=== PATIENT | male | born 1940 | race Caucasian/White ===

== ENCOUNTER → 2016-05-17 | Outpatient (CLI) | payer OTHER, BC ==
--- NOTE | 2016-05-17 14:06 | US ---
Limited chest wall ultrasound 1309 hours. History: Right lower anterior chest wall mass. Findings: Ultrasound over area of palpable nodule demonstrates prominence of the underlying cartilage from the ribs near the costochondral junction. At the level just below the areola on the right there is mild superficial bulging of the cartilaginous portion that is asymmetric to the left side. No sig nificant underlying mass is seen. There is no evidence of lipoma. Impression: 1. Area of palpable concern along the right anterior/inferior chest wall corresponds to underlying mi ld asymmetric prominence of the cartilaginous portion of the ribs. The results of this study were reviewed with the patient and his . Clinical followup recommended.
== END ==
LOC: BMCIMAGING 12:13
PROVIDERS: ATTEND Internal Medicine
DX: R22.2 Localized swelling, mass and lump, trunk (principal)

== ENCOUNTER 2016-11-28 12:58 | Emergency (ER) | payer OTHER, BC ==
[2016-11-28] MEDS ORDERED: NS 1,000 ML IV ONE (13:14)
--- NOTE | 2016-11-28 13:15 | EDPHY ---
H & P Stated Complaint: syncope in shower this AM HPI/ROS: HPI CHIEF COMPLAINT: Syncope in shower HISTORY OF PRESENT ILLNESS: This patient is 76-year-old male, significant past medical history for dementia, hypertension, hyperlipidemia, he presents emergency room by private vehicle after he had a syncopal episode witnessed by his while getting out of the shower. The patient had not had anything to eat. reports that he was getting a shower had a syncopal episode with positive LOC. Head strike against the shower wall but no significant bleeding or injury. Patient does report no preceding symptoms. He denies lightheadedness , dizziness, chest pain or shortness of breath. Denies tunnel vision. Next thing he remembers is that he woke up on the ground. His to take his vitals are noted that his blood pressure was then 90 systolic multiple times. It is since comma to the 110s. Upon arrival here in emergency room the patient has a normal neurological exam he has no complaints he does tell me feels tired but denies any significant focal weakness. He denies chest pain or shortness of breath. He does additionally tells me that this happened 1 other time on charge and he was dehydrated. Past Medical History: Hypertension, hyperlipidemia, dementia Past Surgical History: No recent surgery Social History: Denies daily use drugs alcohol tobacco products. at bedside. Family History: Noncontributory. ROS REVIEW OF SYSTEMS: A comprehensive 10 point review of systems is otherwise negative aside from elements mentioned in the history of present illness. Exam Constitutional appears well nontoxic, triage nursing summary reviewed, vital signs reviewed, awake/alert. Eyes normal conjunctivae and sclera, EOMI, PERRLA. HENT normal inspection, atraumatic, moist mucus membranes, no epistaxis, neck supple/ no meningismus, no raccoon eyes. Respiratory clear to auscultation bilaterally, normal breath sounds, no respiratory distress, no wheezing. Cardiovascular rate normal, regular rhythm, no murmur, no edema, distal pulses normal. Gastrointestinal soft, non-tender, no rebound, no guarding, normal bowel sounds, no distension, no pulsatile mass. Genitourinary no CVA tenderness. Musculoskeletal no midline vertebral tenderness, full range of motion, no calf swelling, no tenderness of extremities, no meningismus, good pulses, neurovascularly intact. Skin pink, warm, & dry, no rash, skin atraumatic. Neurologic normal neurological exam no focal neuro deficits, awake, alert and oriented x 3, AAOx3, moves all 4 extremities equally, motor intact, sensory intact, CN II-XII intact, normal cerebellar, normal vision, normal speech. Psychiatric normal mood/affect. Heme/Lymph/Immune no lymphadenopathy. Differential Diagnosis: Includes but is not limited to in a particular order, dehydration, electrolyte disturbance, cardiac arrhythmia, stroke, vasovagal syncope, orthostatic syncope Medical Decision Making: Plan for this patient 1 L normal saline bolus, full cardiac cath tech, EKG, check electrolytes and blood work, check troponin. Re-evaluation: EKG interpretation by me on record in [employer] system. Impression time of EKG 1331: Sinus rhythm rate of 55, left axis deviation. NE interval: 216. No acute ischemic changes. Unremarkable EKG. CT scan of the head without IV contrast. The results of the study are negative for acute abnormality. The study was read by Dr. Khalil I viewed the images myself on the PACS system. 1509: Re-evaluation at this time this patient is resting comfortably no acute distress. He ambulated well to the bathroom. He has been placed on cardiac cath tech the entire time with no signs of cardiac arrhythmia. His troponin is negative EKG is nonischemic. There is no cardiac arrhythmia. He ambulated well feels fine denies headache chest pain or shortness of breath is requesting discharge home. Most likely had syncopal episode due to dehydration not eating a meal or drinking much fluids this morning hot shower. Does understand return emergency room if develops chest pain, shortness of breath, or has another syncopal episode. Take it easy today. Drink lots of fluids stay well-hydrated return if any questions or concerns. updated at bedside he and his understand. Source: Patient - Personal History Current Tetanus/Diphtheria Vaccine: Yes Current Tetanus Diphtheria and Acellular Pertussis (TDAP): Yes Tetanus Vaccine Date: 12/23 - Medical/Surgical History Hx Asthma: No Hx Chronic Respiratory Disease: No Hx Diabetes: No Hx Cardiac Disease: Yes Hx Renal Disease: No Hx Cirrhosis: No Hx Alcoholism: No Hx HIV/AIDS: No Hx Splenectomy or Spleen Trauma: No Other PMH: medical SVT with abaltion, depression hypothryroid;S/P APPY;S/P T&A - Social History Smoking Status: Never smoked Constitutional: Initial Vital Signs Temperature (C) 36.3 C 11/28/16 13:04 Heart Rate 58 L 11/28/16 13:04 Respiratory Rate 16 11/28/16 13:04 Blood Pressure 129/72 H 11/28/16 13:04 O2 Sat (%) 97 11/28/16 13:04 O2 Delivery Mode Room Air Allergies/Adverse Reactions: memantine HCl [From Namenda] Allergy (Verified 09/12/15 11:21) Home Medications: Medication Instructions Recorded Simvastatin [Zocor 10 mg] 5 mg PO HS 03/06/12 Levothyroxine [Synthroid 100 mcg 100 mcg PO DAILY06 #0 tab 03/07/12 (*)] Aspirin [Aspirin 325 mg (*)] 325 mg PO DAILY 10/06/13 Clindamycin 1% [Cleocin 1% Lotion] 1 osvaldo TP DAILY #0 10/06/13 Cyanocobalamin [Vitamin B12 (*)] 1,000 mcg PO DAILY@18 10/06/13 Multivitamins [Multivitamin (*)] 1 each PO DAILY 10/06/13 Acetaminophen [Tylenol Arthritis] 650 mg PO BID 09/12/15 Bupropion HCl [Bupropion Xl] 150 mg PO DAILY 09/12/15 Calcium Carbonate [Oyster Shell 1,000 mg PO DAILY 09/12/15 Calcium 500 mg (*)] Cholecalciferol (Vitamin D3) 2,000 unit PO DAILY 09/12/15 [Vitamin D3] Donepezil HCl [Aricept] 10 mg PO DAILY 09/12/15 Fish Oil/Dha/Epa [Fish Oil 1,200 1 each PO DAILY@18 09/12/15 mg Fish Oil] Fluocinonide 1 osvaldo TP DAILY 09/12/15 Polyethylene Glycol 3350 [Miralax 17 gm PO DAILY 09/12/15 17 gm (*)] Medical Decision Making - Diagnostics Imaging Results: Imaging Impressions Chest X-Ray 11/28/16 13:15 Impression: No evidence for acute cardiopulmonary abnormality. Stable chronic findings as above. Head CT 11/28/16 13:22 Impression: Minimal periventricular white matter change that can be seen with aging or small vessel ischemic disease. No evidence for acute intracranial abnormality. Results called and discussed with Dr. Tylor Ledbetter, on November 28, 2016 at 1436 hours. - Data Points Laboratory Results: Laboratory Results 11/28/16 13:20 11/28/16 13:20 11/28/16 11/28/16 11/28/16 13:20 13:20 13:20 WBC 8.67 10^3/uL 10^3/uL (3.80-9.50) RBC 4.99 10^6/uL 10^6/uL (4.40-6.38) Hgb 15.1 g/dL g/dL (13.7-17.5) Hct 44.6 % % (40.0-51.0) MCV 89.4 fL fL (81.5-99.8) MCH 30.3 pg pg (27.9-34.1) MCHC 33.9 g/dL g/dL (32.4-36.7) RDW 12.3 % % (11.5-15.2) Plt Count 179 10^3/uL 10^3/uL (150-400) MPV 9.4 fL fL (8.7-11.7) Neut % (Auto) 89.0 % H % (39.3-74.2) Lymph % (Auto) 3.6 % L % (15.0-45.0) [place] % (Auto) 5.2 % % (4.5-13.0) Eos % (Auto) 1.2 % % (0.6-7.6) Baso % (Auto) 0.5 % % (0.3-1.7) Nucleat RBC Rel Count 0.0 % % (0.0-0.2) Absolute Neuts (auto) 7.73 10^3/uL H 10^3/uL (1.70-6.50) Absolute Lymphs (auto) 0.31 10^3/uL L 10^3/uL (1.00-3.00) Absolute Monos (auto) 0.45 10^3/uL 10^3/uL (0.30-0.80) Absolute Eos (auto) 0.10 10^3/uL 10^3/uL (0.03-0.40) Absolute Basos (auto) 0.04 10^3/uL 10^3/uL (0.02-0.10) Absolute Nucleated RBC 0.00 10^3/uL 10^3/uL (0-0.01) Immature Gran % 0.5 % % (0.0-1.1) Immature Gran # 0.04 10^3/uL 10^3/uL (0.00-0.10) PT 13.9 SEC SEC (12.0-15.0) INR 1.08 (0.83-1.16) APTT 27.1 SEC SEC (23.0-38.0) Sodium 143 mEq/L mEq/L (134-144) Potassium 3.8 mEq/L mEq/L (3.5-5.2) Chloride 105 mEq/L mEq/L (97-110) Carbon Dioxide 24 mEq/l mEq/l (22-31) Anion Gap 14 mEq/L mEq/L (8-16) BUN 19 mg/dL mg/dL (7-23) Creatinine 1.0 mg/dL mg/dL (0.7-1.3) Estimated GFR > 60 Glucose 117 mg/dL H mg/dL (70-100) Calcium 9.0 mg/dL mg/dL (8.5-10.4) Magnesium 2.2 mg/dL mg/dL (1.6-2.3) Total Bilirubin 0.9 mg/dL mg/dL (0.1-1.4) Conjugated Bilirubin 0.3 mg/dL mg/dL (0.0-0.5) Unconjugated Bilirubin 0.6 mg/dL mg/dL (0.0-1.1) AST 30 IU/L IU/L (17-59) ALT 27 IU/L IU/L (21-72) Alkaline Phosphatase 70 IU/L IU/L (38-126) Creatine Kinase 82 IU/L IU/L (0-224) CK-MB (CK-2) Fraction 1.23 ng/mL ng/mL (0-3.19) Troponin I < 0.012 ng/mL ng/mL (0-0.034) NT-Pro-B Natriuret Pep 185 pg/mL pg/mL (0-450) Total Protein 7.4 g/dL g/dL (6.3-8.2) Albumin 4.4 g/dL g/dL (3.5-5.0) Medications Given: Discontinued Medications Sodium Chloride (Ns) 1,000 mls @ 0 mls/hr IV ONCE ONE; Wide Open PRN Reason: Protocol Stop: 11/28/16 13:15 Last Admin: 11/28/16 13:27 Dose: 1,000 mls Departure - Departure Disposition: Home, Routine, Self-Care Clinical Impression: Syncope Qualifiers: Syncope type: unspecified Qualified Code(s): R55 - Syncope and collapse Condition: Good Instructions: Syncope (ED) Additional Instructions: 1.Drink lots of fluids stay well-hydrated. 2. Return to the emergency room if your develop worsening symptoms, this includes passing out, chest pain, shortness of breath. Referrals: Dyan Greer MD [Primary Care Provider] - As per Instructions
[2016-11-28 13:30] LABS: % IMMATURE GRANULYOCYTES 0.5 % (0.0-1.1); ABSOLUTE IMMATURE GRANULOCYTES 0.04 10^3/uL (0.00-0.10); ADD DIFF? NO; ADD MORPH? NO; ADD SCAN? NO; ATYPICAL LYMPHOCYTE FLAG 0 (0-99); FRAGMENT RBC FLAG 0 (0-99); HEMATOCRIT 44.6 % (40.0-51.0); HEMOGLOBIN 15.1 g/dL (13.7-17.5); LEFT SHIFT FLG 0 (0-99); LIPEMIA HEMOLYSIS FLAG 90 (0-99); MEAN CELL HEMOGLOBIN 30.3 pg (27.9-34.1); MEAN CELL HEMOGLOBIN CONCENTR. 33.9 g/dL (32.4-36.7); MEAN CELL VOLUME 89.4 fL (81.5-99.8); MEAN PLATELET VOLUME 9.4 fL (8.7-11.7); PLATELET CLUMPS FLAG 40 (0-99); PLATELET COUNT 179 10^3/uL (150-400); RED BLOOD CELL COUNT 4.99 10^6/uL (4.40-6.38); RED CELL DISTRIBUTION WIDTH 12.3 % (11.5-15.2)
--- NOTE | 2016-11-28 13:34 | CPEKG ---
Heart Rate: 55 RR Interval: 1091 P-R Interval: 216 QRSD Interval: 96 QT Interval: 440 QTC Interval: 421 P [place]: 49 QRS [place]: -31 T Wave [place]: 17 EKG Severity - OTHERWISE NORMAL ECG - EKG Impression: SINUS RHYTHM EKG Impression: LEFT AXIS DEVIATION Electronically Signed By: Carlos Graves 29-Nov-2016 07:55:46
[2016-11-28 13:41] LABS: ALANINE AMINOTRANSFERASE 27 IU/L (21-72); ALBUMIN 4.4 g/dL (3.5-5.0); ALKALINE PHOSPHATASE 70 IU/L (38-126); ANION GAP 14 mEq/L (8-16); APTT 27.1 SEC (23.0-38.0); ASPARTATE AMINOTRANSFERASE 30 IU/L (17-59); BILIRUBIN,TOTAL 0.9 mg/dL (0.1-1.4); BILIRUBIN-CONJUGATED 0.3 mg/dL (0.0-0.5); BILIRUBIN-UNCONJUGATED 0.6 mg/dL (0.0-1.1); CARBON DIOXIDE 24 mEq/l (22-31); CHLORIDE 105 mEq/L (97-110); GLOMERULAR FILTRATION RATE > 60; GLUCOSE 117 mg/dL (70-100); INR 1.08 (0.83-1.16); MAGNESIUM 2.2 mg/dL (1.6-2.3); POTASSIUM 3.8 mEq/L (3.5-5.2); PROTIME(PATIENT) 13.9 SEC (12.0-15.0); SODIUM 143 mEq/L (134-144); TOTAL PROTEIN 7.4 g/dL (6.3-8.2)
[2016-11-28 13:53] LABS: CREATINE KINASE-MB FRACTION 1.23 ng/mL (0-3.19); TROPONIN I < 0.012 ng/mL (0-0.034)
[2016-11-28 15:13] VITALS: BP 109/72; PULSE 58; RESP 19; TEMP 97.9; O2SAT 94
== END 2016-11-28 15:32 | disposition home or self-care (01) ==
DX: R55 Syncope and collapse (principal); I10 Essential (primary) hypertension; Z79.82 Long term (current) use of aspirin

== ENCOUNTER 2016-12-27 13:25 | Emergency (ER) | payer OTHER, BC ==
[2016-12-27 13:30] VITALS: RESP 16
--- NOTE | 2016-12-27 13:39 | CPEKG ---
Heart Rate: 71 RR Interval: 845 P-R Interval: 208 QRSD Interval: 86 QT Interval: 392 QTC Interval: 426 P [place]: 28 QRS [place]: -64 T Wave [place]: 10 EKG Severity - ABNORMAL ECG - EKG Impression: SINUS RHYTHM EKG Impression: LEFT ANTERIOR FASCICULAR BLOCK Electronically Signed By: Gabriele Quick 27-Dec-2016 14:42:53
--- NOTE | 2016-12-27 13:46 | EDPHY ---
H & P Stated Complaint: Increasing number of near syncopal episodes Time Seen by Provider: 12/27/16 13:43 HPI/ROS: CHIEF COMPLAINT: Presyncope HISTORY OF PRESENT ILLNESS: The patient has a history of SVT status post ablation 12 years ago. He presents to the emergency department after an episode of presyncope earlier today. The patient reportedly has been battling symptoms of presyncope over the past several months. He is scheduled to get a Holter monitor placed this week. The patient denies history of melena, fever, cough, congestion or acute pain. The patient does report global weakness. The patient denies asymmetric calf pain or swelling. The patient denies any history of coronary artery disease. 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 REVIEW OF SYSTEMS: A comprehensive 10 point review of systems is otherwise negative aside from elements mentioned in the history of present illness. Source: Patient Exam Limitations: No limitations - Personal History Tetanus Vaccine Date: 12/23 - Medical/Surgical History Hx Asthma: No Hx Chronic Respiratory Disease: No Hx Diabetes: No Hx Cardiac Disease: Yes Hx Renal Disease: No Hx Cirrhosis: No Hx Alcoholism: No Hx HIV/AIDS: No Hx Splenectomy or Spleen Trauma: No Other PMH: medical SVT with abaltion, depression hypothryroid;S/P APPY;S/P T&A - Social History Smoking Status: Never smoked - Physical Exam Exam: General Appearance: Alert, no distress Eyes: Pupils equal and round no pallor or injection ENT, Mouth: Mucous membranes moist Respiratory: There are no retractions, lungs are clear to auscultation Cardiovascular: Regular rate and rhythm Gastrointestinal: Abdomen is soft and nontender, no masses, bowel sounds normal Neurological: A&O, normal motor function, normal sensory exam, normal cranial nerves Skin: Warm and dry, no rashes Musculoskeletal: Neck is supple nontender Extremities: symmetrical, full range of motion Psychiatric: Patient is oriented X 3, there is no agitation Constitutional: Initial Vital Signs Temperature (C) 36.4 C 12/27/16 13:27 Heart Rate 72 12/27/16 13:27 Respiratory Rate 16 12/27/16 13:27 Blood Pressure 131/74 H 12/27/16 13:27 O2 Sat (%) 93 12/27/16 13:27 O2 Delivery Mode Room Air Allergies/Adverse Reactions: memantine HCl [From Namenda] Allergy (Intermediate, Verified 12/27/16 13:30) nausea,lightheaded,disorientation Home Medications: Medication Instructions Recorded RX: Simvastatin [Zocor 10 mg] 5 mg PO HS 03/06/12 RX: Levothyroxine [Synthroid 100 100 mcg PO DAILY06 #0 tab 03/07/12 mcg (*)] RX: Bupropion HCl [Bupropion Xl] 150 mg PO DAILY 09/12/15 RX: Donepezil HCl [Aricept] 10 mg PO DAILY 09/12/15 hydrOXYzine HCL [hydrOXYzine HCL 25 mg PO 12/27/16 (RX)] Medical Decision Making - Diagnostics EKG Interpretation: EKG: Complete interpretation has been separately recorded in the [employer] archive. Summary impression: Sinus rhythm, left anterior fascicular block ED Course/Re-evaluation: The patient presents to the ED with intermittent symptoms of presyncope. The patient does have a history of SVT but does not endorse symptoms of tachycardia. The patient has no fever, urinary symptoms, acute painful complaints or abnormalities noted on his neurologic exam. Patient was placed on a wire twister. The patient had an IV established. The patient received a L of normal saline. The patient was monitored in the emergency department with 3 hours without evidence of arrhythmia or recurrent symptoms of presyncope. The patient's electrolyte testing is within normal limits. His vital signs remained stable without evidence of hypotension or tachycardia. The patient remained neurologically intact without evidence of a focal neurologic deficit. The patient presents to the ED with a recurrent episode of presyncope. 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 The patient will be discharged home with instructions to return to the ED for chest pain, shortness of breath, difficulty breathing, fever, pain or other concerns. Differential Diagnosis: Differential diagnosis considered includes arrhythmia, dehydration, vasovagal episode, metabolic abnormality - Data Points Laboratory Results: Laboratory Results 12/27/16 13:46 12/27/16 13:46 12/27/16 12/27/16 13:46 13:46 WBC 8.27 10^3/uL 10^3/uL (3.80-9.50) RBC 5.28 10^6/uL 10^6/uL (4.40-6.38) Hgb 16.0 g/dL g/dL (13.7-17.5) Hct 46.6 % % (40.0-51.0) MCV 88.3 fL fL (81.5-99.8) MCH 30.3 pg pg (27.9-34.1) MCHC 34.3 g/dL g/dL (32.4-36.7) RDW 12.6 % % (11.5-15.2) Plt Count 205 10^3/uL 10^3/uL (150-400) MPV 9.5 fL fL (8.7-11.7) Neut % (Auto) 83.2 % H % (39.3-74.2) Lymph % (Auto) 7.0 % L % (15.0-45.0) [place] % (Auto) 6.5 % % (4.5-13.0) Eos % (Auto) 2.5 % % (0.6-7.6) Baso % (Auto) 0.6 % % (0.3-1.7) Nucleat RBC Rel Count 0.0 % % (0.0-0.2) Absolute Neuts (auto) 6.87 10^3/uL H 10^3/uL (1.70-6.50) Absolute Lymphs (auto) 0.58 10^3/uL L 10^3/uL (1.00-3.00) Absolute Monos (auto) 0.54 10^3/uL 10^3/uL (0.30-0.80) Absolute Eos (auto) 0.21 10^3/uL 10^3/uL (0.03-0.40) Absolute Basos (auto) 0.05 10^3/uL 10^3/uL (0.02-0.10) Absolute Nucleated RBC 0.00 10^3/uL 10^3/uL (0-0.01) Immature Gran % 0.2 % % (0.0-1.1) Immature Gran # 0.02 10^3/uL 10^3/uL (0.00-0.10) Sodium 137 mEq/L mEq/L (134-144) Potassium 3.8 mEq/L mEq/L (3.5-5.2) Chloride 101 mEq/L mEq/L (97-110) Carbon Dioxide 26 mEq/l mEq/l (22-31) Anion Gap 10 mEq/L mEq/L (8-16) BUN 14 mg/dL mg/dL (7-23) Creatinine 1.2 mg/dL mg/dL (0.7-1.3) Estimated GFR 59 Glucose 90 mg/dL mg/dL (70-100) Calcium 9.9 mg/dL mg/dL (8.5-10.4) Troponin I < 0.012 ng/mL ng/mL (0.000-0.034) Medications Given: Discontinued Medications Sodium Chloride (Ns) 1,000 mls @ 0 mls/hr IV EDNOW ONE; Wide Open PRN Reason: Protocol Stop: 12/27/16 14:00 Last Admin: 12/27/16 14:05 Dose: 1,000 mls Departure - Departure Disposition: Home, Routine, Self-Care Clinical Impression: Pre-syncope Condition: Good Instructions: Near Syncope (ED) Additional Instructions: 1. Please return to the ED for chest pain, difficulty breathing, new pain, fever, recurrent passing out or other concerns. 2. Please follow up with your superintendent board mill as scheduled on Sunday for further evaluation of your ongoing intermittent symptoms. Referrals: Aleja Rosenthal MD [Medical Doctor] - As per Instructions
[2016-12-27] MEDS ORDERED: NS 1,000 ML IV ONE (13:59)
[2016-12-27 14:05] LABS: % IMMATURE GRANULYOCYTES 0.2 % (0.0-1.1); ABSOLUTE IMMATURE GRANULOCYTES 0.02 10^3/uL (0.00-0.10); ADD DIFF? NO; ADD MORPH? NO; ADD SCAN? NO; ATYPICAL LYMPHOCYTE FLAG 10 (0-99); FRAGMENT RBC FLAG 0 (0-99); HEMATOCRIT 46.6 % (40.0-51.0); LEFT SHIFT FLG 0 (0-99); LIPEMIA HEMOLYSIS FLAG 90 (0-99); MEAN CELL HEMOGLOBIN 30.3 pg (27.9-34.1); MEAN CELL HEMOGLOBIN CONCENTR. 34.3 g/dL (32.4-36.7); MEAN CELL VOLUME 88.3 fL (81.5-99.8); MEAN PLATELET VOLUME 9.5 fL (8.7-11.7); PLATELET CLUMPS FLAG 0 (0-99); PLATELET COUNT 205 10^3/uL (150-400); RED BLOOD CELL COUNT 5.28 10^6/uL (4.40-6.38); RED CELL DISTRIBUTION WIDTH 12.6 % (11.5-15.2)
[2016-12-27 14:13] LABS: ANION GAP 10 mEq/L (8-16); CALCIUM 9.9 mg/dL (8.5-10.4); CARBON DIOXIDE 26 mEq/l (22-31); CHLORIDE 101 mEq/L (97-110); CREATININE 1.2 mg/dL (0.7-1.3); GLOMERULAR FILTRATION RATE 59; GLUCOSE 90 mg/dL (70-100); POTASSIUM 3.8 mEq/L (3.5-5.2); SODIUM 137 mEq/L (134-144)
[2016-12-27 14:23] LABS: TROPONIN I < 0.012 ng/mL (0.000-0.034)
[2016-12-27 16:36] VITALS: BP 125/76; PULSE 67; TEMP 97.9; O2SAT 94
== END 2016-12-27 16:36 | disposition home or self-care (01) ==
DX: R55 Syncope and collapse (principal); E86.9 Volume depletion, unspecified

== ENCOUNTER 2016-12-29 08:11 | Day surgery (SDC) | payer OTHER, BC ==
[2016-12-29] MEDS ORDERED: LIDO/EPI 1% **for epidural** 30 ML SDV IF ONE (08:30)
[2016-12-29] MEDS ORDERED: LIDOCAINE 1% 300 MG/30 ML SDV ONE (08:37)
--- NOTE | 2016-12-29 16:50 | CPIP ---
[f rep st] INVASIVE CARDIAC PROCEDURE DATE OF PROCEDURE: 12/29/2016 PRIMARY CARE DOCTOR: Dyan Greer MD INDICATIONS: Unexplained syncope. PROCEDURE: Medtronic LINQ insertion. COMPLICATIONS: None apparent. DESCRIPTION OF PROCEDURE: Informed consent was obtained. The patient was prepped and draped in [place] ri[place] fashion. 1% lidocaine was used for local anesthesia over the left parasternal area. Using sta ndard technique, a Medtronic LINQ monitor was implanted. The incision was then closed with 2 staple s. Dressing applied. Patient education performed for the patient and his . CONCLUSION: Successful LINQ implant. Follow up in our office as scheduled in 10 days for staple re moval and device check. /[id number]/MODL
== END 2016-12-29 10:25 | disposition home or self-care (01) ==
LOC: FCATH 08:11
PROVIDERS: ATTEND Internal Medicine Cardiovascular Disease
PROC: 0JH60PZ Insertion of Cardiac Rhythm Related Device into Chest Subcutaneous Tissue and Fascia, Open Approach (ICD-10-PCS; principal; 2016-12-29)
DX: I47.1 Supraventricular tachycardia (principal); E78.5 Hyperlipidemia, unspecified; R55 Syncope and collapse
CPT/HCPCS: C1764

== ENCOUNTER → 2017-02-27 | Outpatient (CLI) | payer OTHER, BC | LOC: FIMAGING 14:28 | PROVIDERS: ATTEND Psychiatry & Neurology Neurology | DX: R42 Dizziness and giddiness (principal); R29.818 Other symptoms and signs involving the nervous system ==

== ENCOUNTER → 2017-10-04 | Outpatient (CLI) | payer OTHER, BC | LOC: BMCIMAGING 10:29 | PROVIDERS: ATTEND Internal Medicine | DX: R09.89 Other specified symptoms and signs involving the circulatory and respiratory systems (principal); J84.9 Interstitial pulmonary disease, unspecified ==

== ENCOUNTER 2018-01-12 00:13 | Emergency (ER) | payer OTHER, BC ==
--- NOTE | 2018-01-12 00:43 | EDPHY ---
H & P Stated Complaint: R shoulder pain after lifting heavy rock Time Seen by Provider: 01/12/18 00:43 HPI/ROS: HPI CHIEF COMPLAINT: Right shoulder pain after lifting heavy rock. HISTORY OF PRESENT ILLNESS: 77-year-old male, history of dementia, hypertension , hyperlipidemia SVT presents emergency room with right lateral shoulder pain, musculoskeletal in etiology. Patient states on Sunday he picked up 100 lb [place] to move in his yd. Shortly after this he developed some right lateral shoulder pain. This is been persistent for the past few days. It is worse with range of motion of his right shoulder the area of tenderness is right lateral shoulder. Denies any neck pain, denies any chest pain or shortness of breath. Denies pleuritic pain. Denies abdominal pain. Denies scapula pain. Denies radiation of pain the pain is located right lateral shoulder over the deltoid. It is worse when he goes to abduct his arm. Distally neurovascular intact good radial pulse. Good cap refill. Sensation intact. Good property economist strength. Patient decided come the emergency room due to pain this evening. His gave him a Percocet which is greatly helped his pain at this time. Past Medical History: Significant medical history for dementia, hypertension, hyperlipidemia, thyroid disease, SVT Past Surgical History: Appendectomy, T&A Social History: Denies daily use drugs alcohol tobacco. at bedside. Family History: Noncontributory. ROS REVIEW OF SYSTEMS: 10 Systems were reviewed and negative with the exception of the elements mentioned in the history of present illness. Exam Constitutional appears well nontoxic no acute distress triage nursing summary reviewed, vital signs reviewed, awake/alert. Eyes normal conjunctivae and sclera, EOMI, PERRLA. HENT normal inspection, atraumatic, moist mucus membranes, no epistaxis, neck supple/ no meningismus, no raccoon eyes. Respiratory clear to auscultation bilaterally, normal breath sounds, no respiratory distress, no wheezing. Cardiovascular rate normal, regular rhythm, no murmur, no edema, distal pulses normal. Gastrointestinal soft, non-tender, no rebound, no guarding, normal bowel sounds, no distension, no pulsatile mass. Genitourinary no CVA tenderness. Musculoskeletal right upper extremity: Neurovascular intact good radial pulse, good cap refill, full range of motion however with range of motion of the right shoulder joint he has pain. Specifically tenderness over the lateral deltoid. Worsening pain with abduction of the right arm. Abduction against resistance is worse. No compartment syndrome. Good radial pulse. No neck pain. No scapular pain. no midline vertebral tenderness, full range of motion, no calf swelling, no tenderness of extremities, no meningismus, good pulses, neurovascularly intact. Skin pink, warm, & dry, no rash, skin atraumatic. Neurologic awake, alert and oriented x 3, AAOx3, moves all 4 extremities equally, motor intact, sensory intact, CN II-XII intact, normal cerebellar, normal vision, normal speech. Psychiatric normal mood/affect. Heme/Lymph/Immune no lymphadenopathy. Differential Diagnosis: Includes but is not limited to in a particular order musculoskeletal shoulder pain, muscle tear, soft tissue injury, rotator cuff injury, nerve injury Medical Decision Making: Plan for this patient x-ray right shoulder. Will hold off on pain medicine this time. Apply ice pack. He received Percocet by his earlier and is doing better. Re-evaluation: X-ray of the right shoulder reviewed by myself. No evidence of acute fracture malalignment. Osteoarthritis present. However I do not appreciate acute fracture. Plan for patient recommend anti-inflammatory pain medicine, ice, sling, and orthopedic follow-up. It is still possible he has a rotator cuff injury versus musculoskeletal strain. Additionally return precautions discussed he understands return emergency room if develops worsening pain numbness or tingling questions or concerns. Source: Patient - Personal History Current Tetanus/Diphtheria Vaccine: Yes Current Tetanus Diphtheria and Acellular Pertussis (TDAP): Yes Tetanus Vaccine Date: 12/23 - Medical/Surgical History Hx Asthma: No Hx Chronic Respiratory Disease: No Hx Diabetes: No Hx Cardiac Disease: Yes Hx Renal Disease: No Hx Cirrhosis: No Hx Alcoholism: No Hx HIV/AIDS: No Hx Splenectomy or Spleen Trauma: No Other PMH: medical SVT with abaltion, depression hypothryroid;S/P APPY;S/P T&A - Social History Smoking Status: Never smoked Constitutional: Initial Vital Signs Temperature (C) 36.7 C 01/12/18 00:33 Heart Rate 62 01/12/18 00:33 Respiratory Rate 18 01/12/18 00:33 Blood Pressure 159/91 H 01/12/18 00:33 O2 Sat (%) 95 01/12/18 00:33 O2 Delivery Mode Room Air Allergies/Adverse Reactions: memantine HCl [From Namenda] Allergy (Intermediate, Verified 12/27/16 13:30) nausea,lightheaded,disorientation bupropion Allergy (Verified 01/12/18 00:32) citalopram [From Celexa] Allergy (Unverified 06/05/17 18:05) diazepam [From Valium] Allergy (Verified 01/12/18 00:32) donepezil Allergy (Verified 01/12/18 00:32) Home Medications: Medication Instructions Recorded Simvastatin [Zocor 10 mg] 5 mg PO HS 03/06/12 Levothyroxine [Synthroid 100 mcg 100 mcg PO DAILY06 #0 tab 03/07/12 (*)] Bupropion HCl [Bupropion Xl] 150 mg PO DAILY 09/12/15 Donepezil HCl [Aricept] 10 mg PO DAILY 09/12/15 hydrOXYzine HCL [hydrOXYzine HCL 25 mg PO 12/27/16 (RX)] Departure - Departure Disposition: Home, Routine, Self-Care Clinical Impression: Strain of shoulder, right Qualifiers: Encounter type: initial encounter Qualified Code(s): S46.911A - Strain of unspecified muscle, fascia and tendon at shoulder and upper arm level, right arm , initial encounter Condition: Good Instructions: Rotator Cuff Injury (ED) Additional Instructions: 1. Ice your shoulder. 2. Anti-inflammatory pain medicine for mild pain 3. Follow up with Orthopedics 4. Shoulder sling for comfort. Referrals: Dyan Greer MD [Primary Care Provider] - As per Instructions Moses Cordova MD [Medical Doctor] - As per Instructions
[2018-01-12 01:59] VITALS: BP 144/76
== END 2018-01-12 01:58 | disposition home or self-care (01) ==
DX: S46.911A Strain of unspecified muscle, fascia and tendon at shoulder and upper arm level, right arm, initial encounter (principal); M19.011 Primary osteoarthritis, right shoulder; X50.0XXA Overexertion from strenuous movement or load, initial encounter; Y92.017 Garden or yard in single-family (private) house as the place of occurrence of the external cause; I10 Essential (primary) hypertension; E78.5 Hyperlipidemia, unspecified; E03.9 Hypothyroidism, unspecified
CPT/HCPCS: 73030; 99283; A4565

== ENCOUNTER → 2018-02-28 | Outpatient (CLI) | payer OTHER, BC | PROVIDERS: ATTEND Otolaryngology | DX: R13.10 Dysphagia, unspecified (principal); K21.9 Gastro-esophageal reflux disease without esophagitis | CPT/HCPCS: 74220; 74230; 92611; G8996; G8997; G8998 ==

== ENCOUNTER → 2018-06-18 | Outpatient (CLI) | payer OTHER, BC | LOC: BHFA 15:00 | PROVIDERS: ATTEND Internal Medicine Cardiovascular Disease | DX: I47.1 Supraventricular tachycardia (principal); R55 Syncope and collapse; E78.5 Hyperlipidemia, unspecified ==

== ENCOUNTER → 2018-07-25 | Outpatient (CLI) | payer OTHER, BC | LOC: FCPNEURO 20:00 | PROVIDERS: ATTEND Psychiatry & Neurology Sleep Medicine | DX: G47.33 Obstructive sleep apnea (adult) (pediatric) (principal) ==

== ENCOUNTER → 2018-07-31 | Outpatient (CLI) | payer OTHER, BC | LOC: FIMAGING 09:17 | PROVIDERS: ATTEND Internal Medicine | DX: Z13.820 Encounter for screening for osteoporosis (principal); M85.89 Other specified disorders of bone density and structure, multiple sites ==

== ENCOUNTER → 2018-09-17 | Outpatient (CLI) | payer OTHER, BC | LOC: BHFA 08:30 | PROVIDERS: ATTEND Internal Medicine Cardiovascular Disease | DX: I47.1 Supraventricular tachycardia (principal) | CPT/HCPCS: 78452; 93017; 93306; A9500; J2785 ==

== ENCOUNTER → 2018-09-18 | Outpatient (CLI) | payer OTHER, BC | LOC: FIMAGING 15:23 | PROVIDERS: ATTEND Internal Medicine | DX: R09.89 Other specified symptoms and signs involving the circulatory and respiratory systems (principal); R91.8 Other nonspecific abnormal finding of lung field ==

== ENCOUNTER → 2018-09-24 | Outpatient (CLI) | payer OTHER, BC | LOC: FIMAGING 09:00 | PROVIDERS: ATTEND Internal Medicine | DX: J18.0 Bronchopneumonia, unspecified organism (principal); R91.8 Other nonspecific abnormal finding of lung field; R59.9 Enlarged lymph nodes, unspecified; M47.814 Spondylosis without myelopathy or radiculopathy, thoracic region; M19.011 Primary osteoarthritis, right shoulder; M19.012 Primary osteoarthritis, left shoulder ==